=== PATIENT | female | born 1960 | race Caucasian/White ===

== ENCOUNTER → 2016-09-13 | Outpatient (CLI) | payer OTHER ==
--- NOTE | 2016-09-13 16:04 | BD ---
EXAMINATION TYPE: MG DEXA axial skeleton. DATE OF EXAM: 09/13/2016 12:41 PM COMPARISON: NONE CLINICAL HISTORY: Height: 5 FT 6 IN Weight: 178 FRAX RISK QUESTIONS: Alcohol (3 or more units per day): NO Family History (Parent hip fracture): NO Glucocorticoids (More than 3mos): NO (Ex: prednisone, prednisolone, methylprednisolone, dexamethasone, and hydrocortisone). History of Fracture in Adulthood: YES Secondary Osteoporosis: 1. Type 1 Diabetes: NO 2. Hyperthyroidism: NO 3. Menopause before 45: YES 4. Malnutrition: NO 5. Chronic liver disease: BEING TESTEDUNSURE OF WHAT THEY ARE WATCHING Rheumatoid Arthritis: YES AT AGE 17 BUT NOT NOW Current Tobacco Use: NO RISK FACTORS HISTORY OF: Other Fractures since Age 51: ANKLE When: Family History of Osteoporosis: YES Active: YES Postmenopausal woman: AGE 47 MEDICATIONS: Additional Medications: Effexor LYRICA, VIT D, MELATONIN,VIT E, VIT B , TOPAMAX, XANAFLEX, XANAX Additional History: EXAM MEASUREMENTS: Bone mineral densitometry was performed using the [employer]. Bone mineral density as measured about the Lumbar spine is: ----- L1-L4(G/cm2): 1.038 T Score Values are as follows: ----- L2: -0.8 ----- L3: -0.9 ----- L4: -1.4 ----- L1-L4: -1.2 Bone mineral density has: Decreased -7.9% since study of: 2001 Bone mineral density about the R hip (g/cm2): 0.877 Bone mineral density about the L hip (g/cm2): 0.832 T Score values are as follows: -----R Neck: -1.2 -----L Neck: -1.5 -----R Intertrochanter: -1.8 -----L Intertrochanter: -1.7 Bone mineral density has: Decreased -15.0% since study of: 2001 IMPRESSION: Osteopenia (T Score between -2.5 and -1 as noted by T score values There is slightly increased risk of fracture and the patient may be considered for treatment. Re-Screen 1-2 years. LUMBAR AND JAYLENE FEMUR NOTE: T-SCORE=SD OF THE YOUNG ADULT MEAN.
--- NOTE | 2016-09-14 08:43 | MM ---
Reason for exam: screening (asymptomatic). Last mammogram was performed 1 year and 9 months ago. History: Patient is postmenopausal. Physical Findings: A clinical breast exam by your physician is recommended on an annual basis and results should be correlated with mammographic findings. MG Screening Mammo w CAD Bilateral CC and MLO view(s) were taken. Prior study comparison: December 10, 2014, bilateral MG screening mammo w CAD. September 10, 2013, bilateral digital screening mammo w/CAD. There are scattered fibroglandular densities. Finding: There are typically benign calcifications in the left breast. No significant changes in finding since December 10, 2014 and September 10, 2013. ASSESSMENT: Benign, BI-RAD 2 RECOMMENDATION: Routine screening mammogram of both breasts in 1 year.
== END | disposition home or self-care (01) ==
LOC: RADMAMWWP 12:37
PROVIDERS: ATTEND Obstetrics & Gynecology
DX: Z12.31 Encounter for screening mammogram for malignant neoplasm of breast (principal); M85.89 Other specified disorders of bone density and structure, multiple sites; Z78.0 Asymptomatic menopausal state
CPT/HCPCS: 77080; G0202

== ENCOUNTER → 2016-12-28 | Outpatient (CLI) | payer OTHER ==
--- NOTE | 2016-12-28 12:37 | XR ---
EXAMINATION TYPE: XR chest 2V DATE OF EXAM: 12/28/2016 12:30 PM COMPARISON: NONE INDICATION: Chest pain TECHNIQUE: Frontal and lateral views of the chest are obtained. FINDINGS: The heart size is normal. The pulmonary vasculature is normal. The lungs are clear. IMPRESSION: 1. No acute pulmonary process.
== END | disposition home or self-care (01) ==
LOC: RADXRMAIN 12:14
PROVIDERS: ATTEND Family Medicine
DX: R07.89 Other chest pain (principal)
CPT/HCPCS: 71020

== ENCOUNTER → 2017-08-23 | Outpatient (CLI) | payer OTHER ==
--- NOTE | 2017-08-23 15:25 | MR ---
EXAMINATION TYPE: MR lumbar spine wo con DATE OF EXAM: 08/23/2017 COMPARISON: 10/16/2014 HISTORY: Radiculopathy and low back pain TECHNIQUE: Multiplanar, multisequence images of the lumbar spine were acquired. FINDINGS: The lumbar spine maintains normal vertebral body height and alignment. Bone marrow signal is within n ormal limits other than multiple well-circumscribed T2/T1 hyperintense vertebral body hemangiomas. Th ere is multilevel intervertebral disc desiccation seen. Conus medullaris is unremarkable terminating at L1-L2. L1-L2: Normal disc appearance without desiccation. No herniation, protrusion or disc bulging. No ca nal stenosis is present. Foramina are patent bilaterally. L2-L3: Normal disc appearance without desiccation. No herniation, protrusion or disc bulging. No ca nal stenosis is present. Foramina are patent bilaterally. L3-L4: There is a small broad-based disc bulge without neural foraminal narrowing or spinal canal antonio nosis. L4-L5: There is a small broad-based disc bulge, mildly right eccentric, resulting in minimal right ne ural foraminal narrowing. Left neural foramen and spinal canal are patent. L5-S1: Small broad-based disc bulge is seen without neural foraminal narrowing or spinal canal stenos is. Right sacral nerve root Tarlov cyst is incidentally noted. IMPRESSION: 1. Multilevel mild degenerative disc disease without focal disc herniation. No significant progressio n from the prior exam of 2014. 2. No spinal canal stenosis.
== END | disposition home or self-care (01) ==
LOC: RADMRIMAIN 13:45
PROVIDERS: ATTEND Internal Medicine Rheumatology
DX: M51.16 Intervertebral disc disorders with radiculopathy, lumbar region (principal)
CPT/HCPCS: 72148

== ENCOUNTER → 2017-12-28 | Outpatient (CLI) | payer OTHER ==
[2017-12-28 08:27] LABS: Basophils # (A) 0.1 k/uL (0-0.2); Basophils % (A) 1 %; Eosinophils # (A) 0.2 k/uL (0-0.7); Eosinophils % (A) 2 %; HCT 49.3 % (34.0-46.0); HGB 15.5 gm/dL (11.4-16.0); Hypochromasia Slight; Lymphocytes # (A) 2.9 k/uL (1.0-4.8); Lymphocytes % (A) 39 %; MCH 31.5 pg (25.0-35.0); MCHC 31.5 g/dL (31.0-37.0); Macrocytosis Slight; Mean Platelet Volume 7.1; Monocytes # (A) 0.3 k/uL (0-1.0); Monocytes % (A) 4 %; Neutrophils # (A) 3.8 k/uL (1.3-7.7); Neutrophils % (A) 52 %; Platelet Count 355 k/uL (150-450); RBC 4.93 m/uL (3.80-5.40); RDW 14.2 % (11.5-15.5); WBC 7.4 k/uL (3.8-10.6)
[2017-12-28 08:54] LABS: Albumin 4.3 g/dL (3.5-5.0); Calcium 9.5 mg/dL (8.4-10.2); Potassium 3.8 mmol/L (3.5-5.1); Total Bilirubin 0.4 mg/dL (0.2-1.3); Total Protein 7.3 g/dL (6.3-8.2)
[2017-12-28 17:34] LABS: Iron Saturation 19.77 (12.00-45.00)
[2017-12-28 17:41] LABS: Vitamin D 25 Hydroxy 34.6 ng/mL (30.0-100.0)
[2017-12-28 17:57] LABS: Folate, Serum 22.1 ng/mL
== END | disposition home or self-care (01) ==
LOC: LABWHC1 08:06
PROVIDERS: ATTEND Nurse Practitioner Adult Health
DX: R53.83 Other fatigue (principal); E78.5 Hyperlipidemia, unspecified; E55.9 Vitamin D deficiency, unspecified; I82.0 Budd-Chiari syndrome
CPT/HCPCS: 36415; 80053; 80061; 82306; 82607; 82728; 82746; 83540; 83550; 84443; 85025

== ENCOUNTER → 2018-03-02 | Outpatient (CLI) | payer OTHER ==
--- NOTE | 2018-03-03 11:19 | MM ---
Reason for exam: screening (asymptomatic). Last mammogram was performed 1 year and 6 months ago. History: Patient is postmenopausal. Physical Findings: A clinical breast exam by your physician is recommended on an annual basis and results should be correlated with mammographic findings. MG Screening Mammo w CAD Bilateral CC and MLO view(s) were taken. Prior study comparison: September 13, 2016, bilateral MG screening mammo w CAD. December 10, 2014, bilateral MG screening mammo w CAD. There are scattered fibroglandular densities. No suspicious abnormality. No significant changes when compared with prior studies. ASSESSMENT: Negative, BI-RAD 1 RECOMMENDATION: Routine screening mammogram of both breasts in 1 year.
== END ==
LOC: RADMAMWWP 15:45
PROVIDERS: ATTEND Internal Medicine
DX: Z12.31 Encounter for screening mammogram for malignant neoplasm of breast (principal)
CPT/HCPCS: 77067

== ENCOUNTER → 2018-03-31 | Outpatient (CLI) | payer OTHER ==
--- NOTE | 2018-03-31 10:31 | US ---
EXAMINATION TYPE: US liver DATE OF EXAM: 03/31/2018 COMPARISON: 01/26/2016 CLINICAL HISTORY: 57-year-old female R58.89 Abnormal shadowing liver imaging. TECHNIQUE: Multiple sonographic images of the right upper quadrant are obtained. FINDINGS: EXAM MEASUREMENTS: Liver Length: 14.9 cm Gallbladder Wall: 0.2 cm CBD: 0.5 cm Right Kidney: 10.2 x 4.3 x 5.1 cm Pancreas: Suboptimal visualization of the pancreatic head and tail secondary to shadowing from bowel gas. Visualized portions appear within normal limits. Liver: seen with 2 echogenic solid structures within the rt anterior lobe, measuring 2.2 x 2.0 x 1.5 cm and 1.3 x 1.3 x 1.4cm. Previously, 2 echogenic lesions were seen measuring 2.0 and 1.5 cm. Gallbladder: wnl Evidence for sonographic Wills's sign: no CBD: wnl Right Kidney: wnl IMPRESSION: 1. Redemonstrated 2 hemangiomas within the right liver lobe measuring 2.2 and 1.4 cm. 2. Otherwise, no specific abnormality seen.
== END | disposition home or self-care (01) ==
LOC: RADUSWWP 07:52
PROVIDERS: ATTEND Internal Medicine
DX: R94.8 Abnormal results of function studies of other organs and systems (principal)
CPT/HCPCS: 76705

== ENCOUNTER → 2019-01-23 | Outpatient (CLI) | payer OTHER ==
[2019-01-23 08:59] LABS: Basophils # (A) 0.1 k/uL (0-0.2); Basophils % (A) 1 %; Eosinophils # (A) 0.2 k/uL (0-0.7); Eosinophils % (A) 3 %; HCT 44.7 % (34.0-46.0); HGB 14.2 gm/dL (11.4-16.0); Lymphocytes # (A) 2.2 k/uL (1.0-4.8); Lymphocytes % (A) 35 %; MCH 30.8 pg (25.0-35.0); MCHC 31.7 g/dL (31.0-37.0); MCV 97.2 fL (80.0-100.0); Monocytes # (A) 0.2 k/uL (0-1.0); Monocytes % (A) 4 %; Neutrophils # (A) 3.5 k/uL (1.3-7.7); Neutrophils % (A) 56 %; Platelet Count 337 k/uL (150-450); RDW 13.6 % (11.5-15.5); WBC 6.3 k/uL (3.8-10.6)
[2019-01-23 16:35] LABS: African American GFR (CKD) 94.9 (60.0-200.0); Albumin 4.2 g/dL (3.80-4.90); Albumin/Globulin Ratio 2.1 (1.60-3.17); Anion Gap 8.4 mmol/L (4.00-12.00); BUN/Creat Ratio 16.25 Ratio (12.00-20.00); Calcium 9.2 mg/dL (8.7-10.3); Carbon Dioxide 23.6 mmol/L (21.6-31.8); LDL Cholesterol,Calculated 81.6 mg/dL (0.0-131.0); Total Bilirubin 0.4 mg/dL (0.2-1.2); Total Protein 6.2 g/dL (6.2-8.2); VLDL Calculation 27.4 mg/dL (5.00-40.00)
== END | disposition home or self-care (01) ==
LOC: LABWHC1 08:06
PROVIDERS: ATTEND Nurse Practitioner Adult Health
DX: E78.5 Hyperlipidemia, unspecified (principal); F33.9 Major depressive disorder, recurrent, unspecified; M79.7 Fibromyalgia; F41.1 Generalized anxiety disorder
CPT/HCPCS: 36415; 80053; 80061; 83036; 84443; 85025

== ENCOUNTER → 2019-04-25 | Outpatient (CLI) | payer OTHER ==
--- NOTE | 2019-04-25 09:43 | US ---
EXAMINATION TYPE: US abdomen complete DATE OF EXAM: 04/25/2019 COMPARISON: Prior liver ultrasound dated 03/31/2018 CLINICAL HISTORY: R10.11 RUQ Pain. RUQ pain, weight gain, history of liver lesions EXAM MEASUREMENTS: Liver Length: 13.5 cm Gallbladder Wall: 0.3 cm CBD: 0.5 cm Spleen: 8.9 cm Right Kidney: 10.3 x 4.0 x 4.1 cm Left Kidney: 10.0 x 5.1 x 4.0 cm Technical limitations due to large amount of overlying bowel content Pancreas: Obscured by bowel gas Liver: hyperechoic areas noted = 1.2 x 1.4 x 1.3cm and 1.3 x 1.4 x 1.2cm Gallbladder: no evidence of stones Evidence for sonographic Wills's sign: yes CBD: wnl Spleen: granulomas Right Kidney: no evidence of hydronephrosis Left Kidney: no evidence of hydronephrosis Upper IVC: wnl Abd Aorta: wnl Is no ascites. IMPRESSION: 2 hyperechoic foci are identified within the liver. There are limitations the exam.
== END | disposition home or self-care (01) ==
LOC: RADUSWWP 06:52
PROVIDERS: ATTEND Internal Medicine
DX: R93.2 Abnormal findings on diagnostic imaging of liver and biliary tract (principal); R10.11 Right upper quadrant pain
CPT/HCPCS: 76700

== ENCOUNTER → 2019-05-07 | Outpatient (CLI) | payer OTHER ==
--- NOTE | 2019-05-07 16:01 | NM ---
EXAMINATION TYPE: NM hepatobiliary w EF DATE OF EXAM: 05/07/2019 COMPARISON: Abdominal ultrasound dated 04/25/2019 HISTORY: Right upper quadrant pain TECHNIQUE: After the intravenous administration of 4.6 mCi Tc 99m Mebrofenin hepatobiliary scintigrap hy is performed. Immediate images post injection. FINDINGS: There is satisfactory initial accumulation of tracer by the liver. The gallbladder is visualized wit hin 12 minutes. The small bowel activity is noted within 10 minutes. At one hour 8 ounces of oral e nsure plus is given to mimic CCK and gallbladder ejection fraction is calculated at 80% %, abnormally elevated. Therefore there is no scintigraphic evidence of cystic or common bile duct obstruction to suggest acute cholecystitis or gallbladder dyskinesia. IMPRESSION: 1. Abnormally elevated biliary ejection fraction indicative of hyperkinesia. Ejection fraction measur es 88%. Additionally the patient described abdominal cramping after administering ensure. 2. No scintigraphic evidence of acute or chronic cholecystitis.
== END | disposition home or self-care (01) ==
LOC: RADNMMAIN 12:36
PROVIDERS: ATTEND Internal Medicine
DX: K76.89 Other specified diseases of liver (principal)
CPT/HCPCS: 78226; A9537

== ENCOUNTER → 2019-06-19 | Outpatient (CLI) | payer OTHER ==
--- NOTE | 2019-06-19 20:09 | CONS ---
CONSULTATION REASON FOR EVALUATION: Chronic fatigue. This is a 58-year-old female patient who has been treated for fibromyalgia for many years, locally through Dr. Uriarte and later on Dr. Urrutia of [place]. The patient is currently on disability. She has excessive fatigue and some degree of sleepiness and she was referred to me to be evaluated for sleep apnea, to make sure there is no sleep apnea contributing to her chronic fatigue and sleepiness. Note that the patient reports more fatigue than being sleepy. She does have snoring, especially when she lies on her back. No recent weight gain or weight loss. She has a slight overbite. She has chronic body aches and depression, headaches and trigger points related to fibromyalgia. Occasional grinding of the teeth. She has restlessness in the lower extremities. She has also chronic anxiety. Her current Spring score is 3. Sleep apnea runs in her family. Her mother has obstructive sleep apnea. Denies waking up gasping for air. Denies waking up with a choking sensation. Denies falling asleep while driving her car. No recent weight gain or weight loss. She prefers to sleep on her side. PAST MEDICAL HISTORY: 1. OA. 2. Fibromyalgia. 3. Depression. 4. Anxiety. 5. Headaches. PAST SURGICAL HISTORY: Past surgical history includes rotator cuff surgery and LEEP procedure. DRUG ALLERGIES: NOT KNOWN. She has seasonal environmental allergies. FAMILY HISTORY: Mother has obstructive sleep apnea. OUTPATIENT MEDICATION LIST: Outpatient medication list includes: 1. Effexor XR 150 mg p.o. daily. 2. Lyrica 50 mg p.o. day. 3. Cymbalta 30 mg p.o. daily. 4. Xarelto 15 mg p.o. daily. 5. Zanaflex 4 mg p.o. daily. 6. Prilosec 40 mg p.o. daily. 7. Topamax 200 mg p.o. daily. 8. Calcium, magnesium and zinc 1 tablet a day combination. 9. Claritin 10 mg p.o. daily. 10.Oxycodone 7.5/25 on an as-needed basis. 11.Xanax 0.25 mg on an as-needed basis. 12.Fioricet on an as-needed basis. SOCIAL HISTORY: Nonsmoker. No history of alcoholism. No history of IV drugs. She is currently on disability. REVIEW OF SYSTEMS: Fourteen-point review of systems was done. Positive findings were all mentioned above in the history of present illness. She has chronic body aches and pains and depression and anxiety. Her sleep is disturbed. She wakes up easily and her sleep is fragmented. Occasional restlessness in the lower extremities. No dryness in the mouth. No significant apneas, although she snores while on her back. No nausea. No vomiting. No diarrhea. No constipation. No difficulty with memory and concentration. No history of any motor vehicle accidents because of feeling drowsy or sleepy. PHYSICAL EXAMINATION: VITAL SIGNS: BP is 113/76, pulse 76, respirations 16, temperature 98.6, saturation 95% on room air. Height is 5 feet 6 inches, weight 201. Spring score is 3. BMI 32.4. Neck size is 15-3/4 inches. GENERAL APPEARANCE: Calm, comfortable. HEAD: Atraumatic, normocephalic. NECK: Supple. No JVD. No goiter or neck masses. Mallampati class . She has an overbite. LUNGS: Clear to auscultation. HEART: Heart sounds are regular rate and rhythm. Normal S1, S2. No S3, S4. No murmurs. ABDOMEN: Soft, nontender. No organomegaly. EXTREMITIES: No edema. No cyanosis or clubbing. NEUROLOGIC: Awake and alert. There is no focal neurological deficit. PSYCHIATRIC: Negative for anxiety or depression. SKIN: Negative for any wounds or ulceration. IMPRESSION: 1. Chronic fatigue with some limited sleepiness. Current Spring score is 3. Low likelihood for obstructive sleep apnea. Symptoms are most likely secondary to fibromyalgia. 2. Chronic anxiety/depression. 3. Osteoarthritis. 4. 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 5. Chronic headaches. PLAN: 1. Implement good sleep hygiene measures. 2. Maintain a regular sleep schedule. 3. Weight loss. 4. Sleep on the side. 5. Sleep hygiene measures were discussed. 6. Exercise program. 7. Treatment of fibromyalgia. 8. Polysomnogram to rule out obstructive sleep apnea and treat accordingly. Overall suspicion for obstructive sleep apnea is low. MMODL / IJN: [id number] /
== END ==
LOC: SLEEP 15:14
PROVIDERS: ATTEND Internal Medicine Critical Care Medicine
DX: F32.9 Major depressive disorder, single episode, unspecified (principal); F41.9 Anxiety disorder, unspecified; M19.90 Unspecified osteoarthritis, unspecified site; Z86.718 Personal history of other venous thrombosis and embolism; Z79.01 Long term (current) use of anticoagulants; R51 Headache; Z79.899 Other long term (current) drug therapy; Z88.8 Allergy status to other drugs, medicaments and biological substances
CPT/HCPCS: 99211

== ENCOUNTER → 2020-08-20 | Outpatient (CLI) | payer OTHER ==
--- NOTE | 2020-08-25 08:35 | MM ---
Reason for exam: screening (asymptomatic). Last mammogram was performed 2 years and 6 months ago. History: Patient is postmenopausal. Physical Findings: A clinical breast exam by your physician is recommended on an annual basis and results should be correlated with mammographic findings. MG Screening Mammo w CAD Bilateral CC and MLO view(s) were taken. Prior study comparison: March 02, 2018, bilateral MG screening mammo w CAD. September 13, 2016, bilateral MG screening mammo w CAD. There are scattered fibroglandular densities. No significant changes when compared with prior studies. ASSESSMENT: Benign, BI-RAD 2 RECOMMENDATION: Routine screening mammogram of both breasts in 1 year.
== END | disposition home or self-care (01) ==
LOC: RADMAMWWP 10:58
PROVIDERS: ATTEND Family Medicine
DX: Z12.31 Encounter for screening mammogram for malignant neoplasm of breast (principal)
CPT/HCPCS: 77067

== ENCOUNTER → 2020-10-03 | Outpatient (CLI) | payer OTHER ==
--- NOTE | 2020-10-03 15:09 | XR ---
EXAMINATION TYPE: XR ankle complete RT DATE OF EXAM: 10/03/2020 COMPARISON: None HISTORY: Pain from fall TECHNIQUE: 3 view right ankle FINDINGS: Ankle mortise is intact. No acute fractures or dislocations are evident. Soft tissues appea r normal. Follow up exams can be performed 7-10 days from acute trauma for continued pain. IMPRESSION: 1. Normal three-view right ankle
--- NOTE | 2020-10-03 15:10 | XR ---
EXAMINATION TYPE: XR knee complete LT DATE OF EXAM: 10/03/2020 COMPARISON: None HISTORY: Fall, pain TECHNIQUE: 3 view left knee FINDINGS: Joint spaces are preserved. No acute fracture or dislocation is evident. No joint effusion is evident. Follow up exams can be performed 7-10 days from acute trauma for continued pain. IMPRESSION: 1. Normal three-view left ankle
== END ==
LOC: RADXRMAIN 14:36
PROVIDERS: ATTEND Nurse Practitioner Adult Health
DX: M25.562 Pain in left knee (principal); M25.571 Pain in right ankle and joints of right foot; W19.XXXA Unspecified fall, initial encounter

== ENCOUNTER → 2020-12-12 | Outpatient (CLI) | payer OTHER ==
--- NOTE | 2020-12-12 14:11 | XR ---
EXAMINATION TYPE: XR Hip Complete LT DATE OF EXAM: 12/12/2020 CLINICAL HISTORY: pain TECHNIQUE: AP and frogleg views of the left hip are obtained. COMPARISON: None. FINDINGS: There is no acute fracture/dislocation evident. The joint space appears within normal li mits. The overlying soft tissue appears unremarkable. IMPRESSION: 1. There is no acute fracture or dislocation.ICD 10 NO FRACTURE, INITIAL EVALUATION
== END | disposition home or self-care (01) ==
LOC: RADXRMAIN 13:45
PROVIDERS: ATTEND Internal Medicine
DX: M25.552 Pain in left hip (principal)
CPT/HCPCS: 73502

== ENCOUNTER → 2021-02-06 | Outpatient (CLI) | payer OTHER | END | disposition home or self-care (01) | DX: M25.471 Effusion, right ankle (principal) ==

== ENCOUNTER 2021-03-09 14:25 | Emergency (ER) | payer OTHER ==
[2021-03-09 16:18] LABS: Basophils % (A) 0 %; Eosinophils # (A) 0.1 k/uL (0-0.7); Eosinophils % (A) 1 %; HGB 14.4 gm/dL (11.4-16.0); Lymphocytes # (A) 0.7 k/uL (1.0-4.8); Lymphocytes % (A) 7 %; MCH 31.6 pg (25.0-35.0); MCHC 32.7 g/dL (31.0-37.0); MCV 96.6 fL (80.0-100.0); Mean Platelet Volume 8.8; Monocytes # (A) 0.2 k/uL (0-1.0); Monocytes % (A) 2 %; Neutrophils # (A) 8.8 k/uL (1.3-7.7); Neutrophils % (A) 89 %; Platelet Count 191 k/uL (150-450); RBC 4.56 m/uL (3.80-5.40); WBC 9.9 k/uL (3.8-10.6)
[2021-03-09 16:26] LABS: Albumin 3.9 g/dL (3.5-5.0); Calcium 8.7 mg/dL (8.4-10.2); Total Bilirubin 0.6 mg/dL (0.2-1.3); Total Protein 7.1 g/dL (6.3-8.2)
[2021-03-09] MEDS ORDERED: SODIUM CHLORIDE 0.9% 2,000 ML IV ONE (16:36)
[2021-03-09] MEDS ORDERED: POTASSIUM CHLORIDE 10 MEQ in WATER FOR INJECTION 1 100ML.BAG IVPB ONE (16:36)
[2021-03-09] MEDS ORDERED: POTASSIUM CHLORIDE ER 20 MEQ TAB.ER PO STA (16:37)
[2021-03-09 17:59] VITALS: BP 147/71; PULSE 88; RESP 16; TEMP 97.6
[2021-03-09 18:21] LABS: Appearance,Urine Clear (Clear); Bacteria,Urine Rare /hpf; Bilirubin,Urine Negative (Negative); Blood,Urine Small (Negative); Color,Urine Light Yellow; Glucose,Urine (UA) Negative (Negative); Ketones,Urine Negative (Negative); Leukocyte Esterase,Urine Large (Negative); Nitrite,Urine Negative (Negative); Protein,Urine Negative (Negative); RBC,Urine 2 /hpf (0-5); Specific Gravity,Urine 1.005 (1.001-1.035); Urobilinogen,Urine <2.0 mg/dL (<2.0); WBC,Urine 41 /hpf (0-5)
[2021-03-09] MEDS ORDERED: ONDANSETRON 4 MG ODT STARTER PACK 2 TAB BTL PO STA (18:28)
[2021-03-09] MEDS ORDERED: cefTRIAXone IN SWFI 1,000 MG/10 ML SYRINGE IVP STA (18:28)
--- NOTE | 2021-03-09 18:32 | ED ---
General Adult HPI - General Chief complaint: Nausea/Vomiting/Diarrhea Stated complaint: Possible Dehydration, NVD Time Seen by Provider: 03/09/21 16:03 Source: patient Mode of arrival: ambulatory Limitations: no limitations - History of Present Illness Initial comments: Patient is a 60-year-old female with past history of DVT on anticoagulation, febrile myalgia and chronic headaches who presents emergency room with reported nausea, vomiting and diarrhea which began on Tuesday. Patient denies any recent travel or eating any tainted foods. No sick contacts with similar symptoms. States that her nausea has markedly improved however she has had a poor appetite. She is able to hold down water. States that the diarrhea has also slowed down and she does not believe there is anything left in her. She is not taking any medications at home for her symptoms. Denies any fevers. No chest pain, cough. Denies any abdominal pain. No changes in her bowel or bladder habits. Does admit to some vaginal bleeding as she reports that she has a small circular scratch on the left side of her labia. Admits it is mildly tender. He has been controlled for the past 2 days. No other alleviating, precipitating or modifying factors - Related Data Home Medications Medication Instructions Recorded Confirmed Aspirin 325 mg PO DAILY 01/31/14 02/26/15 Melatonin 5 mg PO HS 01/31/14 02/26/15 Pregabalin [Lyrica] 50 mg PO DAILY 01/31/14 02/26/15 Pregabalin [Lyrica] 75 mg PO HS 01/31/14 02/26/15 Topiramate 200 mg PO HS 01/31/14 02/26/15 Venlafaxine HCl ER [Effexor Xr] 150 mg PO HS 01/31/14 02/26/15 tiZANidine [Zanaflex] 4 mg PO HS 01/31/14 02/26/15 Pravastatin Sodium [Pravachol] 10 mg PO Q48H 12/17/14 02/26/15 Loratadine [Claritin] 10 mg PO DAILY 01/14/15 02/26/15 Butalb/Acetaminophen/Caffeine 1 - 2 each PO Q4H PRN 01/27/15 02/26/15 [Fioricet 50-325-40] Previous Rx's Medication Instructions Recorded Enoxaparin [Lovenox] 60 mg SQ Q12H 5 Days syringe 02/26/15 Rivaroxaban [Xarelto] 15 mg PO BID 21 Days tab 02/26/15 Cephalexin [Keflex] 500 mg PO BID 1 Days #14 cap 03/09/21 Allergies Allergy/AdvReac Type Severity Reaction Status Date / Time No Known Allergies Allergy Verified 03/09/21 15:12 Review of Systems ROS Statement: Those systems with pertinent positive or pertinent negative responses have been documented in the HPI. ROS Other: All systems not noted in ROS Statement are negative. Past Medical History Past Medical History: Deep Vein Thrombosis (DVT), Fibromyalgia, Thyroid Disorder Additional Past Medical History / Comment(s): CHRONIC HEADACHES. HAD A FEBRILE SEIZURE AT AGE 2. DVT X 2, History of Any Multi-Drug Resistant Organisms: None Reported Past Surgical History: Orthopedic Surgery, Tubal Ligation, Uterine Ablation Additional Past Surgical History / Comment(s): FIBROID TUMOR REMOVED FROM OVARYCOLPOSCOPYLEEP X2D & CLT ROTATOR CUFF REPAIR, Past Anesthesia/Blood Transfusion Reactions: No Reported Reaction Past Psychological History: Anxiety, Panic Disorder Smoking Status: Never smoker Past Alcohol Use History: None Reported Past Drug Use History: None Reported - Past Family History Mother Family Medical History: Deep Vein Thrombosis (DVT), Pulmonary Embolus General Exam Limitations: no limitations General appearance: alert, in no apparent distress Head exam: Present: atraumatic, normocephalic, normal inspection Eye exam: Present: normal appearance, PERRL, EOMI. Absent: scleral icterus, conjunctival injection, periorbital swelling ENT exam: Present: normal exam, mucous membranes moist Neck exam: Present: normal inspection. Absent: tenderness, meningismus, lymphadenopathy Respiratory exam: Present: normal lung sounds bilaterally. Absent: respiratory distress, wheezes, rales, rhonchi, stridor Cardiovascular Exam: Present: regular rate, normal rhythm, normal heart sounds. Absent: systolic murmur, diastolic murmur, rubs, gallop, clicks GI/Abdominal exam: Present: soft, normal bowel sounds. Absent: distended, tenderness, guarding, rebound, rigid External exam: Present: lesions (three, ulceerative, left labia majora) Extremities exam: Present: normal inspection, full ROM, normal capillary refill. Absent: tenderness, pedal edema, joint swelling, calf tenderness Back exam: Present: normal inspection Neurological exam: Present: alert, oriented X3, CN II-XII intact Psychiatric exam: Present: normal affect, normal mood Skin exam: Present: warm, dry, intact, normal color. Absent: rash Course Vital Signs 03/09/21 03/09/21 15:09 17:58 Temperature 99.2 F 97.6 F Pulse Rate 89 88 Respiratory 18 16 Rate Blood Pressure 98/64 147/71 O2 Sat by Pulse 95 98 Oximetry Medical Decision Making - Medical Decision Making Upon arrival patient was placed into room 2. A thorough history and physical exam is performed. Laboratories his were conducted. IV is established the patient is given 2 L of normal saline. Laboratory studies are returned and potassium is 3. The patient is given 40 mg oral potassium and 10 mEq IV. Urinalysis does demonstrate large leukocyte esterase with bacteria. She is given a dose of Rocephin and will be placed on Keflex in the outpatient setting. Covid is negative. I discussed results the patient. She does feel improved at this time and will be discharged home to follow up with her primary care doctor in 2-4 days. Return to the emergency room for any new or worsening symptoms. Patient was discharged home in stable condition - Lab Data Result diagrams: 03/09/21 16:11 03/09/21 16:11 Lab Results 03/09/21 03/09/21 03/09/21 Range/Units 16:11 16:11 16:11 WBC 9.9 (3.8-10.6) k/uL RBC 4.56 (3.80-5.40) m/uL Hgb 14.4 (11.4-16.0) gm/dL Hct 44.0 (34.0-46.0) % MCV 96.6 (80.0-100.0) fL MCH 31.6 (25.0-35.0) pg MCHC 32.7 (31.0-37.0) g/dL RDW 14.0 (11.5-15.5) % Plt Count 191 (150-450) k/uL MPV 8.8 Neutrophils % 89 % Lymphocytes % 7 % Monocytes % 2 % Eosinophils % 1 % Basophils % 0 % Neutrophils # 8.8 H (1.3-7.7) k/uL Lymphocytes # 0.7 L (1.0-4.8) k/uL Monocytes # 0.2 (0-1.0) k/uL Eosinophils # 0.1 (0-0.7) k/uL Basophils # 0.0 (0-0.2) k/uL Sodium 138 (137-145) mmol/L Potassium 3.0 L (3.5-5.1) mmol/L Chloride 103 (98-107) mmol/L Carbon Dioxide 25 (22-30) mmol/L Anion Gap 10 mmol/L BUN 16 (7-17) mg/dL Creatinine 0.85 (0.52-1.04) mg/dL Est GFR (CKD-EPI)AfAm 87 (>60 ml/min/1.73 sqM) Est GFR (CKD-EPI)NonAf 76 (>60 ml/min/1.73 sqM) Glucose 118 H (74-99) mg/dL Calcium 8.7 (8.4-10.2) mg/dL Magnesium (1.6-2.3) mg/dL Total Bilirubin 0.6 (0.2-1.3) mg/dL AST 52 H (14-36) U/L ALT 44 H (4-34) U/L Alkaline Phosphatase 126 (38-126) U/L Total Protein 7.1 (6.3-8.2) g/dL Albumin 3.9 (3.5-5.0) g/dL Urine Color Urine Appearance (Clear) Urine pH (5.0-8.0) Ur Specific [place] (1.001-1.035) Urine Protein (Negative) Urine Glucose (UA) (Negative) Urine Ketones (Negative) Urine Blood (Negative) Urine Nitrite (Negative) Urine Bilirubin (Negative) Urine Urobilinogen (<2.0) mg/dL Ur Leukocyte Esterase (Negative) Urine RBC (0-5) /hpf Urine WBC (0-5) /hpf Urine Bacteria (None) /hpf Coronavirus (PCR) Not Detected (Not Detectd) HSV I DNA PCR (Not detected) HSV II DNA PCR (Not detected) HSV (PCR) Source 03/09/21 03/09/21 03/09/21 Range/Units 16:11 16:11 18:10 WBC (3.8-10.6) k/uL RBC (3.80-5.40) m/uL Hgb (11.4-16.0) gm/dL Hct (34.0-46.0) % MCV (80.0-100.0) fL MCH (25.0-35.0) pg MCHC (31.0-37.0) g/dL RDW (11.5-15.5) % Plt Count (150-450) k/uL MPV Neutrophils % % Lymphocytes % % Monocytes % % Eosinophils % % Basophils % % Neutrophils # (1.3-7.7) k/uL Lymphocytes # (1.0-4.8) k/uL Monocytes # (0-1.0) k/uL Eosinophils # (0-0.7) k/uL Basophils # (0-0.2) k/uL Sodium (137-145) mmol/L Potassium (3.5-5.1) mmol/L Chloride (98-107) mmol/L Carbon Dioxide (22-30) mmol/L Anion Gap mmol/L BUN (7-17) mg/dL Creatinine (0.52-1.04) mg/dL Est GFR (CKD-EPI)AfAm (>60 ml/min/1.73 sqM) Est GFR (CKD-EPI)NonAf (>60 ml/min/1.73 sqM) Glucose (74-99) mg/dL Calcium (8.4-10.2) mg/dL Magnesium 2.3 (1.6-2.3) mg/dL Total Bilirubin (0.2-1.3) mg/dL AST (14-36) U/L ALT (4-34) U/L Alkaline Phosphatase (38-126) U/L Total Protein (6.3-8.2) g/dL Albumin (3.5-5.0) g/dL Urine Color Light Yellow Urine Appearance Clear (Clear) Urine pH 6.0 (5.0-8.0) Ur Specific [place] 1.005 (1.001-1.035) Urine Protein Negative (Negative) Urine Glucose (UA) Negative (Negative) Urine Ketones Negative (Negative) Urine Blood Small H (Negative) Urine Nitrite Negative (Negative) Urine Bilirubin Negative (Negative) Urine Urobilinogen <2.0 (<2.0) mg/dL Ur Leukocyte Esterase Large H (Negative) Urine RBC 2 (0-5) /hpf Urine WBC 41 H (0-5) /hpf Urine Bacteria Rare H (None) /hpf Coronavirus (PCR) (Not Detectd) HSV I DNA PCR Not detected (Not detected) HSV II DNA PCR Not detected (Not detected) HSV (PCR) Source See Below Disposition Clinical Impression: Dehydration, Nausea and vomiting, Acute UTI Disposition: HOME SELF-CARE Condition: Stable Instructions (If sedation given, give patient instructions): Urinary Tract Infection in Women (ED), Acute Nausea and Vomiting (ED), Acute Diarrhea (ED) Additional Instructions: Please follow up with your PCP in 2-4 days. Return to the ED for any new or worsening symptoms. We will call you with any abnormal results of your swab test Prescriptions: Cephalexin [Keflex] 500 mg PO BID 1 Days #14 cap Is patient prescribed a controlled substance at d/c from ED?: No Referrals: Calvin Beckett MD [Primary Care Provider] - 1-2 days Time of Disposition: 18:32
== END 2021-03-09 18:37 | disposition home or self-care (01) ==
LOC: EC 14:25
DX: E86.0 Dehydration (principal); N39.0 Urinary tract infection, site not specified; R11.2 Nausea with vomiting, unspecified; R19.7 Diarrhea, unspecified; N93.9 Abnormal uterine and vaginal bleeding, unspecified; M79.7 Fibromyalgia; Z20.822 Contact with and (suspected) exposure to COVID-19; Z79.899 Other long term (current) drug therapy
CPT/HCPCS: 36415; 87529; 80053; 83735; 85025; 81001; 87086; 87635; 99284; 96374; 96361; J0696; J3480; S0119

== ENCOUNTER 2021-04-15 08:45 | Day surgery (SDC) | payer OTHER ==
[2021-04-14 09:30] VITALS: BMI 33.3
[~2021-04-15 08:45] MED LIST: LACTATED RINGERS 1,000 ML IV SCH
[2021-04-15 09:21] VITALS: TEMP 97
[2021-04-15] MEDS ORDERED: PROPOFOL 10 MG/ML 20 ML VIAL IV ONE (09:29)
[2021-04-15] MEDS ORDERED: LIDOCAINE 1% INJ 10MG/ML (20 ML MDV) ONE (09:29)
--- NOTE | 2021-04-15 09:45 | P.PCN ---
Date of Procedure: 04/15/21 Procedure(s) Performed: BRIEF HISTORY: Patient is a 60-year-old pleasant female scheduled for an elective colonoscopy as a part of screening for colorectal neoplasia. PROCEDURE PERFORMED: Colonoscopy with snare polypectomy PREOPERATIVE DIAGNOSIS: Screening for colon cancer. IV sedation per Anesthesia. PROCEDURE: After informed consent was obtained, the patient, was brought into the endoscopy unit. IV sedation was administered by Anesthesia under continuous monitoring. Digital rectal examination was normal. Initially the Olympus CF-160 flexible video colonoscope was then inserted in the rectum, gradually advanced into the cecum without any difficulty. Careful examination was performed as the scope was gradually being withdrawn. Ileocecal valve and the appendiceal orifice were visualized and appeared normal. Prep was excellent. Mucosa of the cecum, appeared normal. In the ascending colon there was a 1 cm broad-based polyp removed by snare polypectomy. Rest of the ascending colon, transverse colon, descending colon, sigmoid colon, and rectum appeared normal. Scattered diffuse diverticulosis seen. Retroflexion was performed in the rectum and no lesions were seen. The patient tolerated the procedure well. IMPRESSION: 1 cm broad-based ascending colon polyp status post polypectomy Scattered diffuse diverticulosis RECOMMENDATIONS: Findings of this examination were discussed with the patient as well as her family. She was advised to follow with the biopsy results. If the biopsy reveals adenoma she can have a repeat colonoscopy in 3 years.
[2021-04-15 09:54] VITALS: RESP 16
[2021-04-15 10:06] VITALS: BP 125/73; PULSE 76
== END 2021-04-15 10:25 | disposition home or self-care (01) ==
LOC: ORWHC2ENDO 08:45
PROVIDERS: ATTEND Internal Medicine Gastroenterology
DX: Z12.11 Encounter for screening for malignant neoplasm of colon (principal); D12.2 Benign neoplasm of ascending colon; M79.7 Fibromyalgia
CPT/HCPCS: 45385; 88305; J2001; J2704

== ENCOUNTER → 2022-01-20 | Outpatient (CLI) | payer OTHER ==
--- NOTE | 2022-01-20 15:33 | BD ---
EXAMINATION TYPE: Axial Bone Density DATE OF EXAM: 01/20/2022 COMPARISON: NONE CLINICAL HISTORY: 61 years year old Female. ICD-10 CODE: Z78.0 ENCOUNTER FOR OSTEOPOROSIS Height: 5 FT 6 IN Weight: 182 FRAX RISK QUESTIONS: Alcohol (3 or more units per day): NO Family History (Parent hip fracture): NO Glucocorticoids (More than 3mos): NO (Ex: prednisone, prednisolone, methylprednisolone, dexamethasone, and hydrocortisone). History of Fracture in Adulthood: YES Secondary Osteoporosis: 1. Type 1 Diabetes: NO 2. Hyperthyroidism: NO 3. Menopause before 45: YES 4. Malnutrition: NO 5. Chronic liver disease: NO Rheumatoid Arthritis: A CHILD NOT NOW Current Tobacco Use: NO RISK FACTORS HISTORY OF: Surgery to Spine/Hip(right/left)/Wrist (right/left): NO Family History of Osteoporosis: YES Active: YES Diet low in dairy products/other sources of calcium: NO Postmenopausal woman: YES Take estrogen and/or progesterone medications: NO Lost more than 2 inches in height since high school: NO Frequent falls: YES Poor Health: FAIR Hyperparathyroidism: NO Adrenal Insufficiency: NO MEDICATIONS: Additional Medications: ANTI DEPRESSANT, TOPAMAX, LYRICA, BACLOFEN,ELIQUIS, LIPITOR, LORATADINE, OMEP RAZOLE, Additional History: EXAM MEASUREMENTS: Bone mineral densitometry was performed using the [employer] System. Bone mineral density as measured about the Lumbar spine is: ----- L1-L4(G/cm2): 0.992 T Score Values are as follows: ----- L1: -1.3 ----- L2: -2.2 ----- L3: -1.5 ----- L4: -1.6 ----- L1-L4: -1.6 Bone mineral density has: DECREASED -7.2 % since study of: 2016 Bone mineral density about the R hip (g/cm2): 0.793 Bone mineral density about the L hip (g/cm2): 0.825 T Score values are as follows: -----R Neck: -1.8 -----L Neck: -1.5 -----R Total: -1.6 -----L Total: -1.6 Bone mineral density has: DECREASED -3.4 % since study of: 2017 FRAX%s: The graph provided illustrates a 14.9 % chance for a major osteoporotic fx and a 1.7 % chance for the hips probability for fx in 10 years time. IMPRESSION: Osteopenia NOTE: T-SCORE=SD OF THE YOUNG ADULT MEAN.
[2022-01-20 23:07] LABS: Basophils # (A) 0.05 X 10*3/uL (0.00-0.10); Basophils % (A) 0.8 %; Eosinophils # (A) 0.19 X 10*3/uL (0.04-0.35); Eosinophils % (A) 2.9 %; HCT 39.9 % (37.2-46.3); HGB 12.6 g/dL (12.0-15.0); Immature Grans, Automated 0.2 %; Lymphocytes # (A) 2.64 X 10*3/uL (0.90-5.00); Lymphocytes % (A) 40.9 %; MCHC 31.6 g/dL (32.0-37.0); Mean Platelet Volume 11.5 fL (9.5-12.2); Monocytes # (A) 0.35 X 10*3/uL (0.20-1.00); Monocytes % (A) 5.4 %; NRBC Per 100 WBC 0 /100 WBCS (0.0-0.0); Neutrophils # (A) 3.22 X 10*3/uL (1.80-7.70); Neutrophils % (A) 49.8 %; Platelet Count 261 X 10*3/uL (140-440); RBC 4.07 X 10*6/uL (4.10-5.20); RDW 14.7 % (11.5-14.5); WBC 6.46 X 10*3/uL (4.50-10.00)
[2022-01-20 23:29] LABS: ALT 24 U/L (8-44); AST 18 U/L (13-35); African American GFR (CKD) 98.2 (60.0-200.0); Albumin 4.1 g/dL (3.8-4.9); Albumin/Globulin Ratio 1.68 (1.60-3.17); Alkaline Phosphatase 85 U/L (41-126); BUN/Creat Ratio 12.54 Ratio (12.00-20.00); Blood Urea Nitrogen 9.6 mg/dL (9.0-27.0); Calcium 8.8 mg/dL (8.7-10.3); Carbon Dioxide 24.2 mmol/L (20.0-27.5); Chloride 107 mmol/L (96-109); Globulin 2.4 g/dL (1.6-3.3); Glucose 96 mg/dL (70-110); LDL Cholesterol,Calculated 68.9 mg/dL (0.0-131.0); Non-African American GFR(CKD) 84.7 (60.0-200.0); Potassium 3.5 mmol/L (3.5-5.5); Sodium 141 mmol/L (135-145); Total Protein 6.5 g/dL (6.2-8.2); VLDL Calculation 17.08 mg/dL (5.00-40.00)
--- NOTE | 2022-01-21 16:53 | MM ---
Reason for Exam: Screening (asymptomatic). Last mammogram was performed 1 year(s) and 5 month(s) ago. Patient History: Menarche at age 12. First Full-Term at age 24. Postmenopausal. Risk Values: Chanel 5 year model risk: 1.4%. NCI Lifetime model risk: 7.2%. Prior Study Comparison: 09/13/2016 Bilateral Screening Mammogram, [facility]. 03/02/2018 Bilateral Screening Mammogram, [facility]. 08/20/2020 Bilateral Screening Mammogram, [facility]. Tissue Density: The breast tissue is almost entirely fat. Findings: Analyzed By CAD. No suspicious groups of microcalcifications, spiculated or lobular masses, architectural distortion or other secondary signs of malignancy are mammographically apparent. Overall Assessment: Negative, BI-RAD 1 Management: Screening Mammogram of both breasts in 1 year. A negative mammogram report should not preclude additional follow up of suspicious palpable abnormalities. Patient should continue monthly self breast exam. A clinical breast exam by your physician is recommended on an annual basis and results should be correlated with mammographic findings. Electronically signed and approved by: Jagdish Mata D.O. Radiologis
== END | disposition home or self-care (01) ==
LOC: RADMAMWWP 14:15
PROVIDERS: ATTEND Internal Medicine
DX: Z12.31 Encounter for screening mammogram for malignant neoplasm of breast (principal); Z13.820 Encounter for screening for osteoporosis; E78.5 Hyperlipidemia, unspecified; Z78.0 Asymptomatic menopausal state
CPT/HCPCS: 77067; 77080; 80053; 80061; 84443; 85025

== ENCOUNTER → 2022-05-03 | Outpatient (CLI) | payer OTHER ==
--- NOTE | 2022-05-04 06:00 | MR ---
EXAMINATION TYPE: MR brain wo con DATE OF EXAM: 05/03/2022 COMPARISON: CT brain 2014 HISTORY: Migraine headache. TECHNIQUE: Multiplanar, multisequence imaging of the brain and brainstem is performed without IV cont rast. FINDINGS: Diffusion weighted images demonstrate no evidence of a recent infarct or other diffusion abnormality. There is no extraaxial fluid collection or significant white matter signal abnormality. The ventricu lar system and cisternal spaces are normal in size and appearance. The brain volume is age appropria te. Midline structures demonstrate normal morphology. The craniocervical junction appears within normal limits. Normal vascular flow voids are present. Incidental larger caliber dominant right vertebral ar quang. Posterior curvilinear increased T2 signal favors eccentric mucosal thickening in the left sphen oid sinus axial image 9 otherwise paranasal sinuses are clear. The globes are intact bilaterally. IMPRESSION: Mild left sided chronic sphenoid sinus disease otherwise unremarkable study.
== END | disposition home or self-care (01) ==
LOC: RADMRIMAIN 15:36
PROVIDERS: ATTEND Psychiatry & Neurology Neurology
DX: G43.009 Migraine without aura, not intractable, without status migrainosus (principal)
CPT/HCPCS: 70551

== ENCOUNTER → 2023-03-18 | Outpatient (CLI) | payer OTHER ==
--- NOTE | 2023-03-21 20:28 | MM ---
Reason for Exam: Screening (asymptomatic). Last mammogram was performed 1 year(s) and 2 month(s) ago. Patient History: Menarche at age 12. First Full-Term at age 24. Postmenopausal. Paternal cousin had breast cancer. Risk Values: Chanel 5 year model risk: 1.5%. NCI Lifetime model risk: 7.0%. Prior Study Comparison: 03/02/2018 Bilateral Screening Mammogram, [facility]. 08/20/2020 Bilateral Screening Mammogram, [facility]. 01/20/2022 Bilateral MG screening mammo w CAD, [facility]. Tissue Density: There are scattered fibroglandular densities. Findings: Analyzed By CAD. There is no suspicious group of microcalcifications or new suspicious mass in either breast. Overall Assessment: Negative, BI-RAD 1 Management: Screening Mammogram of both breasts in 1 year. . Patient should continue monthly self-breast exams. A clinical breast exam by your physician is recommended on an annual basis. This exam should not preclude additional follow-up of suspicious palpable abnormalities. Note on Chanel scores and lifetime risk: 1. A Chanel score greater than 3% is considered moderate risk. If this is the case, consider specialist referral to assess eligibility for a risk reducing agent. 2. If overall lifetime risk for the development of breast cancer is 20% or higher, the patient may qualify for future screening with alternating mammogram and breast MRI. Electronically signed and approved by: Joseph Griggs M.D. Radiologist
== END | disposition home or self-care (01) ==
LOC: RADMAMWWP 14:47
PROVIDERS: ATTEND Internal Medicine
DX: Z12.31 Encounter for screening mammogram for malignant neoplasm of breast (principal); Z78.0 Asymptomatic menopausal state; Z80.3 Family history of malignant neoplasm of breast
CPT/HCPCS: 77067

== ENCOUNTER → 2024-01-17 | Outpatient (CLI) | payer OTHER ==
--- NOTE | 2024-01-18 08:20 | XR ---
EXAMINATION TYPE: XR abdomen 1V DATE OF EXAM: 01/17/2024 COMPARISON: NONE HISTORY: Pain TECHNIQUE: Single supine KUB image of the abdomen is obtained FINDINGS: Small bowel demonstrates no evidence for dilatation or air fluid levels. Gas and fecal material is seen in non-distended colon. Moderate fecal stasis. No convincing evidence for pneumoperitoneum. No unusual calcifications. The lung bases are clear. The osseous structures are intact. IMPRESSION: 1. Overall nonobstructive bowel gas pattern.
== END | disposition home or self-care (01) ==
LOC: RADXRMAIN 16:26
PROVIDERS: ATTEND Internal Medicine
DX: R14.3 Flatulence (principal)
CPT/HCPCS: 74018

== ENCOUNTER → 2024-02-08 | Outpatient (CLI) | payer OTHER ==
--- NOTE | 2024-02-08 16:02 | CT ---
EXAMINATION TYPE: CT abdomen pelvis w con DATE OF EXAM: 02/08/2024 COMPARISON: 02/17/2016 HISTORY: 63-year-old female R10.32, LLQ ABDOMINAL PAIN. TECHNIQUE: Contiguous axial scanning of the abdomen and pelvis following administration of 100 ml Iso ashley 300 IV contrast. Delayed images through the kidneys and coronal/sagittal reconstructions perform ed. CT DLP: 1520 mGycm Automated exposure control for dose reduction was used. FINDINGS: Heart normal size without pericardial effusion. Lung bases clear without pleural effusion. Suspect a couple benign hemangiomas, one in the right hepatic dome measuring 1.1 cm and one along the lateral right liver lobe measuring 1.1 cm as well. Portal venous system is patent. No biliary ductal dilatation. Gallbladder, left adrenal gland, spleen, and pancreas within normal limits. Small midline ventral abdominal wall omental fat-containing hernia measuring 4.9 cm wide through a na rrow 9 mm abdominal wall defect, previously measuring 6.0 cm wide in 2016. No associated inflammation . Extrarenal pelvis on the right is unchanged. There is new mild left-sided hydronephrosis. Slight asym metric fullness proximal left ureter. There is a 5 mm stone at the distal third left ureter. No dilated small bowel, free fluid, or free air. No mesenteric or retroperitoneal lymphadenopathy. Normal appendix. Oral contrast progressed to the mid transverse colon. Mild to moderate burden. Left- sided colonic diverticulosis. No pericolonic inflammatory change. Bladder urine distended. Uterus anteverted. Bilateral tubal ligation clips. Both ovaries are visualiz ed. No abnormal fluid collection in the pelvis or pelvic lymphadenopathy. Small pelvic phlebolith. Bones: No osseous destructive process. IMPRESSION: 1. A 5 MM STONE IN THE DISTAL THIRD LEFT URETER WITH MILD OBSTRUCTIVE UROPATHY. 2. SMALL MIDLINE VENTRAL ABDOMINAL WALL HERNIA CONTAINING OMENTAL FAT AND LOCATED ALONG THE SUPRAUMBI LICAL REGION MEASURING 4.9 CM WIDE VERSUS 6.0 CM IN 2016. NO ASSOCIATED INFLAMMATION. 3. LEFT-SIDED COLONIC DIVERTICULOSIS WITHOUT ACUTE DIVERTICULITIS.
[2024-02-08 18:32] LABS: Basophils # (A) 0.06 X 10*3/uL (0.00-0.10); Basophils % (A) 0.7 %; Eosinophils # (A) 0.18 X 10*3/uL (0.04-0.35); HCT 43.2 % (37.2-46.3); HGB 13.7 g/dL (12.0-15.0); Lymphocytes # (A) 3.28 X 10*3/uL (0.90-5.00); Lymphocytes % (A) 35.8 %; MCH 30.9 pg (27.0-32.0); MCHC 31.7 g/dL (32.0-37.0); MCV 97.5 FL (80.0-97.0); Mean Platelet Volume 10.4 FL (9.5-12.2); Monocytes # (A) 0.57 X 10*3/uL (0.20-1.00); Monocytes % (A) 6.2 %; NRBC Per 100 WBC 0 X 10*3/uL (0.00-0.01); Neutrophils # (A) 5.06 X 10*3/uL (1.80-7.70); Neutrophils % (A) 55.2 %; Platelet Count 325 X 10*3/uL (140-440); RBC 4.43 X 10*6/uL (4.10-5.20); RDW 13.4 % (11.5-14.5); WBC 9.16 X 10*3/uL (4.50-10.00)
[2024-02-08 19:10] LABS: ALT 37 U/L (8-44); AST 28 U/L (13-35); Albumin 4.3 g/dL (3.8-4.9); Albumin/Globulin Ratio 1.54 Ratio (1.60-3.17); Alkaline Phosphatase 104 U/L (41-126); Blood Urea Nitrogen 8.8 mg/dL (9.0-27.0); Calcium 9.7 mg/dL (8.7-10.3); Carbon Dioxide 23.4 mmol/L (21.6-31.8); Chloride 104 mmol/L (96-109); Globulin 2.8 g/dL (1.6-3.3); Glucose 95 mg/dL (70-110); Lipase 36 U/L (14-63); Potassium 4.9 mmol/L (3.5-5.5); Sodium 140 mmol/L (135-145); Total Bilirubin 0.3 mg/dL (0.3-1.2); Total Protein 7.1 g/dL (6.2-8.2)
== END | disposition home or self-care (01) ==
LOC: RADCTMAIN 12:41
PROVIDERS: ATTEND Internal Medicine
DX: K57.30 Diverticulosis of large intestine without perforation or abscess without bleeding (principal); N20.1 Calculus of ureter
CPT/HCPCS: 80053; 83690; 85025; 74177; 36415; Q9967

== ENCOUNTER → 2024-05-22 | Outpatient (CLI) | payer OTHER ==
--- NOTE | 2024-05-22 14:01 | BD ---
EXAMINATION TYPE: Axial Bone Density DATE OF EXAM: 05/22/2024 CLINICAL HISTORY: 63 years old Female. ICD-10 CODE: Z780 POST MENOPAUSAL WITHOUT HRT Height: 65.5 Weight: 198 FRAX RISK QUESTIONS: Alcohol (3 or more units per day): no Family History (Parent hip fracture): no Glucocorticoids (More than 3mos): no (Ex: prednisone, prednisolone, methylprednisolone, dexamethasone, and hydrocortisone). History of Fracture in Adulthood: yes Secondary Osteoporosis: 1. Type 1 Diabetes: no 2. Hyperthyroidism: no 3. Menopause before 45: yes 4. Malnutrition: no 5. Chronic liver disease: no Rheumatoid Arthritis: no Current Tobacco Use: no RISK FACTORS HISTORY OF: Surgery to Spine/Hip(right/left)/Wrist (right/left): no EXAM MEASUREMENTS: Bone mineral densitometry was performed using the [employer] System. Bone mineral density as measured about the Lumbar spine is: ----- L1-L4(G/cm2): 0.983 T Score Values are as follows: ----- L1: -2.5 ----- L2: -1.1 ----- L3: -1.8 ----- L4: -1.3 ----- L1-L4: -1.6 Z Score Values are as follows: ----- L1: -1.9 ----- L2: -0.5 ----- L3: -1.2 ----- L4: -0.7 ----- L1-L4: -1.1 Bone mineral density has: decreased -0.9 % since study of: 01.20.2022 Bone mineral density about the R hip (g/cm2): 0.801 Bone mineral density about the L hip (g/cm2): 0.798 T Score values are as follows: -----R Neck: -1.6 -----L Neck: -1.6 -----R Total: -1.6 -----L Total: -1.7 Z Score values are as follows: -----R Neck: -0.7 -----L Neck: -0.8 -----R Total: -1.2 -----L Total: -1.2 Bone mineral density has: decreased -0.5 % since study of: 6. FRAX%s: The graph provided illustrates a 14.4% chance for a major osteoporotic fx and a 1.5% chance f or the hips probability for fx in 10 years time. IMPRESSION: Osteopenia (T Score between -2.5 and -1). There is slightly increased risk of fracture and the patient may be considered for treatment. Re-Screen 2-5 years. NOTE: T-SCORE=SD OF THE YOUNG ADULT MEAN. [facility], , 05/22/2024 1:59 PM
--- NOTE | 2024-05-22 15:46 | MR ---
EXAMINATION TYPE: MR liver wo/w con DATE OF EXAM: 05/22/2024 3:22 PM INDICATION: Patient age:Female; 63 years old; Reason for study: D18.03; [facility]. COMPARISON: CT abdomen and pelvis 02/08/2024, 02/17/2016, abdominal ultrasound 04/25/2019, liver ultraso und 03/31/2018, MR abdomen 02/25/2016 TECHNIQUE: Multiplanar multi-sequence imaging was performed without and with IV contrast. The patien t was given 9 ccs of Gadavist intravenously and dynamic imaging was performed. Post IV contrast subtr action images were also submitted for review. FINDINGS: LOWER CHEST: Mild cardiomegaly. ABDOMEN Liver: Segment 8 T2 hyperintense 1.6 cm lesion (series 601, image 59). Segment 7 T2 hyperintense 1.0 cm lesion (series 601, image 51). These both demonstrate some peripheral nodular discontinuous enhan cement with near complete fill in on delayed imaging. Overall relatively stable from prior MRI in 201 6. Gallbladder and Bile ducts: Unremarkable. Pancreas: Unremarkable. Spleen: Unremarkable. Adrenal glands: Unremarkable. Kidneys: No hydronephrosis. Resolution of previously demonstrated left hydroureteronephrosis. Stomach and Bowel: Scattered colonic diverticulosis without evidence for acute diverticulitis.. Peritoneum: No evidence of pneumoperitoneum, free fluid, or adenopathy. Vasculature: Unremarkable. No aortic aneurysm. Abdominal wall: Redemonstration of supraumbilical focal ventral wall hernia containing omental fat wi th defect measuring up to 1.7 cm in diameter. Musculoskeletal: The osseous structures appear intact. Minimal S-shaped scoliotic curvature of the th oracal lumbar spine. IMPRESSION: Relatively stable hemangiomas within the liver from prior MR 2016. [facility], , 05/22/2024 3:44 PM
--- NOTE | 2024-05-23 10:53 | MM ---
Reason for Exam: Screening (asymptomatic). Last mammogram was performed 1 year(s) and 2 month(s) ago. Patient History: Menarche at age 12. First Full-Term at age 24. Postmenopausal. Paternal cousin had breast cancer, age 62. Risk Values: Chanel 5 year model risk: 1.5%. NCI Lifetime model risk: 6.8%. Prior Study Comparison: 08/20/2020 Bilateral Screening Mammogram, [facility]. 01/20/2022 Bilateral MG screening mammo w CAD, [facility]. 03/18/2023 Bilateral MG screening mammo w CAD, [facility]. Tissue Density: There are scattered areas of fibroglandular density. Findings: Analyzed By CAD. There is no suspicious group of microcalcifications or new suspicious mass in either breast. Overall Assessment: Negative, BI-RAD 1 Management: Screening Mammogram of both breasts in 1 year. . Patient should continue monthly self-breast exams. A clinical breast exam by your physician is recommended on an annual basis. This exam should not preclude additional follow-up of suspicious palpable abnormalities. Note on Chanel scores and lifetime risk: 1. A Chanel score greater than 3% is considered moderate risk. If this is the case, consider specialist referral to assess eligibility for a risk reducing agent. 2. If overall lifetime risk for the development of breast cancer is 20% or higher, the patient may qualify for future screening with alternating mammogram and breast MRI. [facility], , 05/23/2024 10:50 AM. Electronically signed and approved by: Patrice Lopez M.D. Radiologis
== END | disposition home or self-care (01) ==
LOC: RADMAMWWP 12:55
PROVIDERS: ATTEND Internal Medicine
DX: D18.03 Hemangioma of intra-abdominal structures
CPT/HCPCS: 74183; 77063; 77067; 77080

== ENCOUNTER → 2025-02-26 | Outpatient (CLI) | payer OTHER ==
--- NOTE | 2025-02-28 10:13 | MR ---
INDICATION: Patient age:Female; 64 years old; Reason for study: M54.41 LUMBAGO WITH SCIATICA, RIGHT SIDE; [facility]. COMPARISONS: MR lumbar spine 08/23/2017. TECHNIQUE: Multi planar, multi sequence imaging was performed utilizing: T1-weighted, T2-weighted, a nd turbo inversion recovery imaging of the lumbar spine. The patient was not given contrast. FINDINGS: The lumbar vertebral bodies do have preserved heights. No spondylolisthesis. Mild S-shaped scoliotic curvature of the thoracolumbar spine with dextrocurvature of the lumbar spine. Multilevel disc desiccation is present without significant disc height loss. Redemonstration of T2/T1 hyperinte nse well-circumscribed vertebral body hemangiomas. The conus medullaris and the distal spinal cord do appear unremarkable with regards to their signal intensity and morphology. Incidental sacral Tarlov cysts. T12-L1: No significant disc pathology is identified. The spinal canal and neural foramen are patent L1-L2: No significant disc pathology is identified. The spinal canal and neural foramen are patent. L2-L3: No significant disc pathology is identified. The spinal canal and neural foramen are patent. L3-L4: No significant disc pathology is identified. The spinal canal and neural foramen are patent. L4-L5: Small right eccentric broad based disc bulge. No spinal canal stenosis. The left neural forame n is patent. Minimal right neural foraminal stenosis. L5-S1: No significant disc pathology is identified. The spinal canal and neural foramen are patent. Right sacral nerve root Tarlov cyst incidentally noted again. Other significant findings: Colonic diverticulosis without visualized acute diverticulitis. IMPRESSION: 1. No definitive evidence for disc herniation or significant spinal canal stenosis. 2. Minimal degenerative disc disease. No significant progression from prior MR in 2018. [facility], , 02/28/2025 10:10 AM
== END | disposition home or self-care (01) ==
LOC: RADMRIMAIN 14:54
PROVIDERS: ATTEND Internal Medicine
DX: M51.360 Other intervertebral disc degeneration, lumbar region with discogenic back pain only (principal)
CPT/HCPCS: 72148